=== PATIENT | female | born 1970 | race Caucasian/White ===

== ENCOUNTER 2019-04-30 22:14 | Observation (INO) | payer MEDICAID ==
[2019-04-30] MEDS ORDERED: Pantoprazole 40 MG Vial IVPUSH ONE (22:23)
[2019-04-30] MEDS ORDERED: Ondansetron 4 MG/2 ML SDV IVPUSH ONE (22:23)
--- NOTE | 2019-04-30 22:25 | EDM.PDOC ---
ED HPI GENERAL MEDICAL PROBLEM - General Chief Complaint: Abdominal Pain Time Seen by Provider: 04/30/19 22:21 Source of Information: Reports: Patient, Family History Limitations: Reports: No Limitations - History of Present Illness INITIAL COMMENTS - FREE TEXT/NARRATIVE: 49 y.o.w.f with a H/o NIDDM, H/O Thyroid nodules, came to the ed with her family 2 hours after she ate a hamburger and ice cream. Pt c/o right upper and right flank pain as well. denied dysuria. No trauma. No C/P. No SOB,no other acute med issues. No prev abd. surgeries. No other acute med issues. BP 139/94 Temp 37 RR 18 Pulse ox 100% on RA Onset Date: 04/30/19 Onset Time: 20:00 Duration: Hour(s): Location: Reports: Abdomen Quality: Reports: Ache, Burning Severity: Mild Improves with: Reports: None Worsens with: Reports: None Context: Reports: Other (ate a hamburger) - Related Data Allergies Allergy/AdvReac Type Severity Reaction Status Date / Time hydrocodone Allergy Itching Verified 04/30/19 22:31 Home Meds: Home Meds Levothyroxine [Synthroid] 50 mcg PO ACBREAKFAST 05/01/19 [History] sitaGLIPtin Phos/Metformin HCl [Janumet 50-1,000 MG] 1 each PO DAILY 05/01/19 [ History] ED ROS GENERAL - Review of Systems Review Of Systems: See Below Constitutional: Reports: No Symptoms HEENT: Reports: No Symptoms Respiratory: Reports: No Symptoms Cardiovascular: Reports: No Symptoms Endocrine: Reports: No Symptoms GI/Abdominal: Reports: Abdominal Pain (RUQ), Nausea, Vomiting : Reports: Dysuria Musculoskeletal: Reports: No Symptoms Skin: Reports: No Symptoms Neurological: Reports: No Symptoms Psychiatric: Reports: No Symptoms Hematologic/Lymphatic: Reports: No Symptoms Immunologic: Reports: No Symptoms ED EXAM, GI/ABD - Physical Exam Exam: See Below Exam Limited By: No Limitations General Appearance: Alert, WD/WN, Mild Distress Eyes: Bilateral: Normal Appearance Ears: Normal External Exam Nose: Normal Inspection, Normal Mucosa Throat/Mouth: Normal Inspection, Normal Lips, Normal Voice, No Airway Compromise Head: Atraumatic, Normocephalic Neck: Normal Inspection, Supple, Non-Tender, Full Range of Motion Respiratory/Chest: No Respiratory Distress, Lungs Clear, Normal Breath Sounds, No Accessory Muscle Use, Chest Non-Tender Cardiovascular: Normal Peripheral Pulses, Regular Rate, Rhythm, No Edema, No Gallop GI/Abdominal Exam: Normal Bowel Sounds, Soft, Non-Tender, No Organomegaly, No Abnormal Bruit, No Mass, Pelvis Stable (Female) Exam: Deferred Rectal (Female) Exam: Deferred Back Exam: Normal Inspection, Full Range of Motion Extremities: Normal Inspection, Normal Range of Motion Neurological: Alert, Oriented, CN II-XII Intact, Normal Cognition, Normal Gait Psychiatric: Normal Affect, Normal Mood Skin Exam: Warm, Dry, Intact, Normal Color, No Rash Lymphatic: No Adenopathy EKG INTERPRETATION EKG Date: 05/01/19 Time: 02:45 Rhythm: NSR Rate (Beats/Min): 72 Chana: Normal P-Wave: Present QRS: Normal ST-T: Normal QT: Normal Comparison: NA - No Prior EKG Course - Vital Signs Text/Narrative:: 49 y.o.w.f with a H/o NIDDM, H/O Thyroid nodules, came to the ed with her family 2 hours after she ate a hamburger and ice cream. Pt c/o right upper and right flank pain as well. denied dysuria. No trauma. No C/P. No SOB,no other acute med issues. No prev abd. surgeries. No other acute med issues. BP 139/94 Temp 37 RR 18 Pulse ox 100% on RA PE: Obese 49 y.o.w.f with N/V and right flank pain 2 hours after eating a hamburger and ICE cream Imaging: No U/S available Labs: WBC 13.4 MCV 77 GFR 59 HGB A1 C 6.6 LF's nl UA pos for UTI with hematuria Impression: Pyelonephritis/UTI with hematuria, Gastritis, poss Food poisoning, Dehydration Tx: NC, Zofran/Phenergan, Protonix, NS and Levaquin Reexam: Same improvement, still nauseated, still flank pain Plan: Admit to MS Last Recorded V/S: Last Vital Signs Temp 37.0 C 05/01/19 02:00 Pulse 64 05/01/19 02:00 Resp 18 05/01/19 02:00 BP 120/89 05/01/19 02:00 Pulse Ox 100 05/01/19 02:00 - Orders/Labs/Meds Orders: Active Orders 24 hr Category Date Time Status CULTURE URINE [RM] Stat Lab 04/30/19 22:40 Received Sodium Chloride 0.9% [Normal Saline] 1,000 ml Med 04/30/19 22:30 Active IV ASDIRECTED Medication Orders Sodium Chloride (Normal Saline) 1,000 mls @ 125 mls/hr IV ASDIRECTED KARRIE Last Admin: 04/30/19 23:18 Dose: 125 mls/hr Promethazine HCl 12.5 mg/ (Sodium Chloride) 50.5 mls @ 200 mls/hr IV Q6H PRN PRN Reason: Nausea/Vomiting Levofloxacin/Dextrose 500 mg/ (Premix) 100 mls @ 100 mls/hr IV Q24H [facility] Labs: Laboratory Tests 04/30/19 04/30/19 04/30/19 Range/Units 22:35 22:35 22:40 WBC 13.9 H (4.5-12.0) X10-3/uL RBC 4.88 (3.23-5.20) x10(6)uL Hgb 12.5 (11.5-15.5) g/dL Hct 37.7 (30.0-51.3) % MCV 77.2 L (80-96) fL MCH 25.5 L (27.7-33.6) pg MCHC 33.0 (32.2-35.4) g/dL RDW 15.8 H (11.5-15.5) % Plt Count 339 (125-369) X10(3)uL MPV 7.6 (7.4-10.4) fL Neut % (Auto) 73.0 (46-82) % Lymph % (Auto) 20.0 (13-37) % [place] % (Auto) 4.7 (4-12) % Eos % (Auto) 2 (1.0-5.0) % Baso % (Auto) 1 (0-2) % Neut # (Auto) 10.0 H (1.6-8.3) # Lymph # (Auto) 2.8 (0.6-5.0) # [place] # (Auto) 0.7 (0.0-1.3) # Eos # (Auto) 0.3 (0.0-0.8) # Baso # (Auto) 0.1 (0.0-0.2) # Sodium 139 (135-145) mmol/L Potassium 3.9 (3.5-5.3) mmol/L Chloride 102 (100-110) mmol/L Carbon Dioxide 28 (21-32) mmol/L BUN 11 (7-18) mg/dL Creatinine 1.0 (0.55-1.02) mg/dL Est Cr Clr Drug Dosing 61.23 mL/min Estimated GFR (MDRD) 59 L (>60) BUN/Creatinine Ratio 11.0 (9-20) Glucose 140 H (80-116) mg/dL Hemoglobin A1c (4.5-6.2) % Lactic Acid (0.4-2.2) mmol/L Calcium 9.4 (8.6-10.2) mg/dL Total Bilirubin 0.3 (0.1-1.3) mg/dL Direct Bilirubin 0.15 (0.10-0.20) mg/dL AST 19 (5-25) IU/L ALT 32 (12-36) U/L Alkaline Phosphatase 82 (56-112) IU/L Troponin I (<0.017-0.056) ng/mL Total Protein 7.7 (6.0-8.0) g/dL Albumin 3.5 (3.5-5.2) g/dL Amylase 30 (25-115) U/L Urine Color Yellow (YELLOW) Urine Appearance Cloudy (CLEAR) Urine pH 5.0 (5.0-6.5) Ur Specific [place] 1.030 H (1.010-1.025) Urine Protein Trace (NEGATIVE) mg/dL Urine Glucose (UA) Normal (NORMAL) mg/dL Urine Ketones Negative (NEGATIVE) mg/dL Urine Occult Blood Large H (NEGATIVE) Urine Nitrite Negative (NEGATIVE) Urine Bilirubin Negative (NEGATIVE) Urine Urobilinogen Normal (NEGATIVE) mg/dL Ur Leukocyte Esterase Large H (NEGATIVE) Urine RBC 30-40 H (0-5) Urine WBC 20-30 H (0-5) Ur Squamous Epith Cells Moderate H (NS,R,O) Urine Bacteria Moderate H (NS) 04/30/19 04/30/19 04/30/19 Range/Units 23:38 23:55 23:55 WBC (4.5-12.0) X10-3/uL RBC (3.23-5.20) x10(6)uL Hgb (11.5-15.5) g/dL Hct (30.0-51.3) % MCV (80-96) fL MCH (27.7-33.6) pg MCHC (32.2-35.4) g/dL RDW (11.5-15.5) % Plt Count (125-369) X10(3)uL MPV (7.4-10.4) fL Neut % (Auto) (46-82) % Lymph % (Auto) (13-37) % [place] % (Auto) (4-12) % Eos % (Auto) (1.0-5.0) % Baso % (Auto) (0-2) % Neut # (Auto) (1.6-8.3) # Lymph # (Auto) (0.6-5.0) # [place] # (Auto) (0.0-1.3) # Eos # (Auto) (0.0-0.8) # Baso # (Auto) (0.0-0.2) # Sodium (135-145) mmol/L Potassium (3.5-5.3) mmol/L Chloride (100-110) mmol/L Carbon Dioxide (21-32) mmol/L BUN (7-18) mg/dL Creatinine (0.55-1.02) mg/dL Est Cr Clr Drug Dosing mL/min Estimated GFR (MDRD) (>60) BUN/Creatinine Ratio (9-20) Glucose (80-116) mg/dL Hemoglobin A1c 6.5 H (4.5-6.2) % Lactic Acid 1.5 (0.4-2.2) mmol/L Calcium (8.6-10.2) mg/dL Total Bilirubin (0.1-1.3) mg/dL Direct Bilirubin (0.10-0.20) mg/dL AST (5-25) IU/L ALT (12-36) U/L Alkaline Phosphatase (56-112) IU/L Troponin I < 0.017 L (<0.017-0.056) ng/mL Total Protein (6.0-8.0) g/dL Albumin (3.5-5.2) g/dL Amylase (25-115) U/L Urine Color (YELLOW) Urine Appearance (CLEAR) Urine pH (5.0-6.5) Ur Specific [place] (1.010-1.025) Urine Protein (NEGATIVE) mg/dL Urine Glucose (UA) (NORMAL) mg/dL Urine Ketones (NEGATIVE) mg/dL Urine Occult Blood (NEGATIVE) Urine Nitrite (NEGATIVE) Urine Bilirubin (NEGATIVE) Urine Urobilinogen (NEGATIVE) mg/dL Ur Leukocyte Esterase (NEGATIVE) Urine RBC (0-5) Urine WBC (0-5) Ur Squamous Epith Cells (NS,R,O) Urine Bacteria (NS) Meds: Medications Generic Name Dose Route Start Last Admin Trade Name Freq PRN Reason Stop Dose Admin Sodium Chloride 1,000 mls @ 125 mls/hr 04/30/19 22:30 04/30/19 23:18 Normal Saline IV 125 mls/hr ASDIRECTED KARRIE Administration Promethazine HCl 12.5 mg/ 50.5 mls @ 200 mls/hr 05/01/19 02:26 Sodium Chloride IV Q6H PRN Nausea/Vomiting Levofloxacin/Dextrose 500 mg/ 100 mls @ 100 mls/hr 05/01/19 02:30 Premix IV Q24H KARRIE Discontinued Medications Generic Name Dose Route Start Last Admin Trade Name Freq PRN Reason Stop Dose Admin Promethazine HCl 12.5 mg/ 50.5 mls @ 200 mls/hr 04/30/19 23:40 05/01/19 00:11 Sodium Chloride IV 04/30/19 23:55 200 mls/hr ONETIME STA Administration Levofloxacin/Dextrose 500 mg/ 100 mls @ 100 mls/hr 04/30/19 23:44 05/01/19 00 :30 Premix IV 05/01/19 00:43 100 mls/hr ONETIME ONE Administration Levofloxacin/Dextrose Confirm 04/30/19 23:58 05/01/19 00:27 Levaquin In D5w 500 Mg/100 Ml Administered 04/30/19 23:59 Not Given Dose 100 mls @ as directed IV .STK-MED ONE Ketorolac Tromethamine 30 mg 04/30/19 23:47 05/01/19 00:02 Toradol IVPUSH 04/30/19 23:48 30 mg ONETIME ONE Administration Levofloxacin 500 mg 04/30/19 23:35 05/01/19 02:19 Levaquin PO 04/30/19 23:36 Not Given ONETIME ONE Ondansetron HCl 8 mg 04/30/19 22:23 05/01/19 02:18 Zofran IVPUSH 04/30/19 22:24 Not Given ONETIME ONE Ondansetron HCl 8 mg 04/30/19 22:58 04/30/19 23:03 Zofran Odt PO 04/30/19 22:59 8 mg ONETIME ONE Administration Pantoprazole Sodium 40 mg 04/30/19 22:23 04/30/19 23:24 Protonix Iv IVPUSH 04/30/19 22:24 40 mg ONETIME ONE Administration Departure - Departure Time of Disposition: 02:43 Disposition: Refer to Observation Condition: Fair Clinical Impression: Pyelonephritis - Discharge Information - My Orders Last 24 Hours: My Active Orders 04/30/19 22:30 Sodium Chloride 0.9% [Normal Saline] 1,000 ml IV ASDIRECTED 04/30/19 22:40 CULTURE URINE [RM] Stat - Assessment/Plan Last 24 Hours: My Active Orders 04/30/19 22:30 Sodium Chloride 0.9% [Normal Saline] 1,000 ml IV ASDIRECTED 04/30/19 22:40 CULTURE URINE [RM] Stat
[2019-04-30] MEDS ORDERED: Ondansetron 8 MG Tab.DIS PO ONE (22:58)
[2019-04-30] MEDS: Sodium Chloride 0.9% 1,000 ML IV SCH (23:18)
[2019-04-30] MEDS ORDERED: Promethazine 12.5 MG in Sodium Chloride 0.9% 50 ML IV STA (23:40)
[2019-04-30] MEDS ORDERED: Levofloxacin/Dextrose 5%-Water 500 MG in Premix Bag 1 BAG IV ONE (23:44)
[2019-04-30] MEDS ORDERED: Ketorolac 30 MG/ML SDV IVPUSH ONE (23:47)
[2019-04-30] MEDS ORDERED: Levofloxacin/Dextrose 5%-Water 100 ML IV ONE (23:58)
[2019-05-01 00:10] LABS: HEMOGLOBIN A1C 6.5 % (4.5-6.2)
[2019-05-01] MEDS: Levofloxacin 500 MG Tab PO ONE ×2 (02:16→02:19)
[2019-05-01] MEDS ORDERED: Promethazine 12.5 MG in Sodium Chloride 0.9% 50 ML IV PRN (02:26)
[2019-05-01] MEDS ORDERED: Levofloxacin/Dextrose 5%-Water 500 MG in Premix Bag 1 BAG IV SCH (02:30)
[2019-05-01] MEDS ORDERED: Ketorolac 30 MG/ML SDV IVPUSH PRN (06:00)
--- NOTE | 2019-05-01 08:47 | PCM.HP ---
H&P History of Present Illness - General Date of Service: 05/01/19 Admit Problem/Dx: Admission Diagnosis/Problem Admission Diagnosis/Problem Pyelonephritis Source of Information: Patient, EMS Notes Reviewed History Limitations: Reports: No Limitations - History of Present Illness Initial Comments - Free Text/Narative: This is a 49-year-old female patient states she was in [place] yesterday and then came back and started feeling sweaty and started get nauseated and vomiting. She had low back pain and then it went up a little higher on the right side it radiated around to her lower right stomach. She denies dysuria, pyuria, hematuria. She denies any history of UTI, pyelonephritis or kidney stones. She did feel chilled. She denies cough, nasal congestion, ear pain. She has chronic diarrhea and that has not changed. Right Lower Flank Pain Score (Numeric/FACES): 2 - Related Data Allergies/Adverse Reactions: Allergies Allergy/AdvReac Type Severity Reaction Status Date / Time hydrocodone Allergy Itching Verified 04/30/19 22:31 Home Medications: Home Meds Levothyroxine [Synthroid] 50 mcg PO ACBREAKFAST 05/01/19 [History] sitaGLIPtin Phos/Metformin HCl [Janumet 50-1,000 MG] 1 each PO DAILY 05/01/19 [ History] Past Medical History HEENT History: Reports: Impaired Vision, Other (See Below) Other HEENT History: glasses Genitourinary History: Reports: Other (See Below) Other Genitourinary History: in with R flank pain, started today, urine culture pending Musculoskeletal History: Reports: Other (See Below) Other Musculoskeletal History: hx sprained R knee, has a knee brace Endocrine/Metabolic History: Reports: Diabetes, Type II, Other (See Below) Other Endocrine/Metabolic History: 1 year hx type 2 diabetes Dermatologic History: Reports: Other (See Below) Other Dermatologic History: Rosacea, skin allergies ? psoriasis, Red rash on her R leg - Infectious Disease History Infectious Disease History: Reports: Chicken Pox - Past Surgical History HEENT Surgical History: Reports: Tonsillectomy Female Surgical History: Reports: None Endocrine Surgical History: Reports: Thyroidectomy, Other (See Below) Other Endocrine Surgeries/Procedures: Partial thyroidectomy, has nodules on other area Musculoskeletal Surgical History: Reports: None Social & Family History - Family History Oncologic: Reports: Breast, Other (See Below) Other Oncologic Family History: mother of breast ca, father from testicular cancer - Tobacco Use Smoking Status *Q: Never Smoker Second Hand Smoke Exposure: No - Caffeine Use Caffeine Use: Reports: Soda - Recreational Drug Use Recreational Drug Use: No H&P Review of Systems - Review of Systems: Review Of Systems: See Below General: Reports: Fever, Malaise, Weakness, Fatigue, Diaphoresis, Decreased Appetite HEENT: Reports: No Symptoms Pulmonary: Reports: No Symptoms Cardiovascular: Reports: No Symptoms Gastrointestinal: Reports: Abdominal Pain, Diarrhea Genitourinary: Reports: Flank Pain. Denies: Dysuria, Frequency, Burning, Pain, Urgency, Hematuria Musculoskeletal: Reports: No Symptoms Skin: Reports: Other (Rash on her leg for over a year. She sees her primary was given her trazodone which helps itching but doesn't go away. No exposures) Psychiatric: Reports: No Symptoms Neurological: Reports: No Symptoms Hematologic/Lymphatic: Reports: No Symptoms Immunologic: Reports: No Symptoms Exam - Exam Exam: See Below - Vital Signs Vital Signs: Last Vital Signs Temp 98.3 F 05/01/19 07:13 Pulse 64 05/01/19 07:13 Resp 16 05/01/19 07:13 BP 128/70 05/01/19 07:13 Pulse Ox 94 L 05/01/19 07:13 Weight: 231 lb 2 oz - Exam General: Alert, Oriented, Cooperative HEENT: Hearing Intact, Normal Nasal Septum, Posterior Pharynx Clear, TMs Clear Neck: Supple, Trachea Midline, Lymphadenopathy Lungs: Normal Respiratory Effort Cardiovascular: Regular Rate, Regular Rhythm. No: Systolic Murmur, Diastolic Murmur GI/Abdominal Exam: Normal Bowel Sounds, Soft, Non-Tender, No Organomegaly, No Distention Back Exam: Normal Inspection, CVA Tenderness (R) Extremities: Normal Inspection, Non-Tender, No Pedal Edema Skin: Warm Neurological: Normal Speech, Normal Tone Neuro Extensive - Mental Status: Alert, Oriented x3, Normal Mood/Affect, Normal Cognition Psychiatric: Alert - Patient Data Lab Results Last 24 hrs: Laboratory Results - last 24 hr 04/30/19 04/30/19 04/30/19 Range/Units 22:35 22:35 22:40 WBC 13.9 H (4.5-12.0) X10-3/uL RBC 4.88 (3.23-5.20) x10(6)uL Hgb 12.5 (11.5-15.5) g/dL Hct 37.7 (30.0-51.3) % MCV 77.2 L (80-96) fL MCH 25.5 L (27.7-33.6) pg MCHC 33.0 (32.2-35.4) g/dL RDW 15.8 H (11.5-15.5) % Plt Count 339 (125-369) X10(3)uL MPV 7.6 (7.4-10.4) fL Neut % (Auto) 73.0 (46-82) % Lymph % (Auto) 20.0 (13-37) % [place] % (Auto) 4.7 (4-12) % Eos % (Auto) 2 (1.0-5.0) % Baso % (Auto) 1 (0-2) % Neut # (Auto) 10.0 H (1.6-8.3) # Lymph # (Auto) 2.8 (0.6-5.0) # [place] # (Auto) 0.7 (0.0-1.3) # Eos # (Auto) 0.3 (0.0-0.8) # Baso # (Auto) 0.1 (0.0-0.2) # Sodium 139 (135-145) mmol/L Potassium 3.9 (3.5-5.3) mmol/L Chloride 102 (100-110) mmol/L Carbon Dioxide 28 (21-32) mmol/L BUN 11 (7-18) mg/dL Creatinine 1.0 (0.55-1.02) mg/dL Est Cr Clr Drug Dosing 61.23 mL/min Estimated GFR (MDRD) 59 L (>60) BUN/Creatinine Ratio 11.0 (9-20) Glucose 140 H (80-116) mg/dL Hemoglobin A1c (4.5-6.2) % Lactic Acid (0.4-2.2) mmol/L Calcium 9.4 (8.6-10.2) mg/dL Total Bilirubin 0.3 (0.1-1.3) mg/dL Direct Bilirubin 0.15 (0.10-0.20) mg/dL AST 19 (5-25) IU/L ALT 32 (12-36) U/L Alkaline Phosphatase 82 (56-112) IU/L Troponin I (<0.017-0.056) ng/mL Total Protein 7.7 (6.0-8.0) g/dL Albumin 3.5 (3.5-5.2) g/dL Amylase 30 (25-115) U/L Urine Color Yellow (YELLOW) Urine Appearance Cloudy (CLEAR) Urine pH 5.0 (5.0-6.5) Ur Specific [place] 1.030 H (1.010-1.025) Urine Protein Trace (NEGATIVE) mg/dL Urine Glucose (UA) Normal (NORMAL) mg/dL Urine Ketones Negative (NEGATIVE) mg/dL Urine Occult Blood Large H (NEGATIVE) Urine Nitrite Negative (NEGATIVE) Urine Bilirubin Negative (NEGATIVE) Urine Urobilinogen Normal (NEGATIVE) mg/dL Ur Leukocyte Esterase Large H (NEGATIVE) Urine RBC 30-40 H (0-5) Urine WBC 20-30 H (0-5) Ur Squamous Epith Cells Moderate H (NS,R,O) Urine Bacteria Moderate H (NS) 04/30/19 04/30/19 04/30/19 Range/Units 23:38 23:55 23:55 WBC (4.5-12.0) X10-3/uL RBC (3.23-5.20) x10(6)uL Hgb (11.5-15.5) g/dL Hct (30.0-51.3) % MCV (80-96) fL MCH (27.7-33.6) pg MCHC (32.2-35.4) g/dL RDW (11.5-15.5) % Plt Count (125-369) X10(3)uL MPV (7.4-10.4) fL Neut % (Auto) (46-82) % Lymph % (Auto) (13-37) % [place] % (Auto) (4-12) % Eos % (Auto) (1.0-5.0) % Baso % (Auto) (0-2) % Neut # (Auto) (1.6-8.3) # Lymph # (Auto) (0.6-5.0) # [place] # (Auto) (0.0-1.3) # Eos # (Auto) (0.0-0.8) # Baso # (Auto) (0.0-0.2) # Sodium (135-145) mmol/L Potassium (3.5-5.3) mmol/L Chloride (100-110) mmol/L Carbon Dioxide (21-32) mmol/L BUN (7-18) mg/dL Creatinine (0.55-1.02) mg/dL Est Cr Clr Drug Dosing mL/min Estimated GFR (MDRD) (>60) BUN/Creatinine Ratio (9-20) Glucose (80-116) mg/dL Hemoglobin A1c 6.5 H (4.5-6.2) % Lactic Acid 1.5 (0.4-2.2) mmol/L Calcium (8.6-10.2) mg/dL Total Bilirubin (0.1-1.3) mg/dL Direct Bilirubin (0.10-0.20) mg/dL AST (5-25) IU/L ALT (12-36) U/L Alkaline Phosphatase (56-112) IU/L Troponin I < 0.017 L (<0.017-0.056) ng/mL Total Protein (6.0-8.0) g/dL Albumin (3.5-5.2) g/dL Amylase (25-115) U/L Urine Color (YELLOW) Urine Appearance (CLEAR) Urine pH (5.0-6.5) Ur Specific [place] (1.010-1.025) Urine Protein (NEGATIVE) mg/dL Urine Glucose (UA) (NORMAL) mg/dL Urine Ketones (NEGATIVE) mg/dL Urine Occult Blood (NEGATIVE) Urine Nitrite (NEGATIVE) Urine Bilirubin (NEGATIVE) Urine Urobilinogen (NEGATIVE) mg/dL Ur Leukocyte Esterase (NEGATIVE) Urine RBC (0-5) Urine WBC (0-5) Ur Squamous Epith Cells (NS,R,O) Urine Bacteria (NS) Result Diagrams: 04/30/19 22:35 04/30/19 22:35 - Problem List (1) Pyelonephritis SNOMED Code(s): 03556821 ICD Code: N12 - TUBULO-INTERSTITIAL NEPHRITIS, NOT SPCF ACUTE OR CHRONIC Status: Acute Current Visit: Yes Problem List Initiated/Reviewed/Updated: Yes Orders Last 24hrs: Active Orders 24 hr Category Date Time Status Patient Status [ADT] Routine ADT 05/01/19 02:18 Active Blood Glucose Check, Bedside [RC] BIDMEALS Care 05/01/19 02:18 Active Oxygen Therapy [RC] PRN Care 05/01/19 02:18 Active Up With Assistance [RC] ASDIRECTED Care 05/01/19 02:18 Active Up ad Yasmeen [RC] ASDIRECTED Care 05/01/19 08:41 Ordered VTE/DVT Education [RC] Per Unit Routine Care 05/01/19 02:18 Active Vital Signs [RC] 00,04,08,12,16,20 Care 05/01/19 02:18 Active Clear Liquid Diet [DIET] Diet 05/01/19 Lunch Ordered CBC WITH AUTO DIFF [HEME] Routine Lab 05/02/19 06:00 Ordered CULTURE URINE [RM] Stat Lab 04/30/19 22:40 Received Enoxaparin [Lovenox] Med 05/01/19 09:00 Ordered 40 mg SUBCUT DAILY Ketorolac [Toradol] Med 05/01/19 06:00 Active 30 mg IVPUSH Q6H PRN Levofloxacin/Dextrose 5%-Water [Levaquin in D5W 500 MG/ Med 05/02/19 00:00 Active 100 ML] 500 mg Premix Bag 1 bag IV Q24H Levothyroxine [Synthroid] Med 05/02/19 07:30 Ordered 50 mcg PO ACBREAKFAST Promethazine [Phenergan] 12.5 mg Med 05/01/19 02:26 Active Sodium Chloride 0.9% [Normal Saline] 50 ml IV Q6H Sodium Chloride 0.9% [Normal Saline] 1,000 ml Med 04/30/19 22:30 Active IV ASDIRECTED Resuscitation Status Routine Resus Stat 05/01/19 02:18 Ordered EKG 12 Lead [EK] Routine Ther 05/01/19 02:28 Ordered Medication Orders Enoxaparin Sodium (Lovenox) 40 mg SUBCUT DAILY KARRIE Sodium Chloride (Normal Saline) 1,000 mls @ 125 mls/hr IV ASDIRECTED KARRIE Last Admin: 04/30/19 23:18 Dose: 125 mls/hr Promethazine HCl 12.5 mg/ (Sodium Chloride) 50.5 mls @ 200 mls/hr IV Q6H PRN PRN Reason: Nausea/Vomiting Last Admin: 05/01/19 04:23 Dose: 200 mls/hr Levofloxacin/Dextrose 500 mg/ (Premix) 100 mls @ 100 mls/hr IV Q24H [facility] Ketorolac Tromethamine (Toradol) 30 mg IVPUSH Q6H PRN PRN Reason: Pain (moderate 4-6) Stop: 05/06/19 06:01 Last Admin: 05/01/19 04:36 Dose: 30 mg Levothyroxine Sodium (Synthroid) 50 mcg PO ACBREAKFAST [facility] Assessment/Plan Comment:: 1. Admit observation. 2. For VTE prophylaxis Lovenox 40 mg subcutaneous daily 3. Hold her diabetes medicine and continue her thyroid medicine. 4. Clear liquid diet 5. IV with normal saline at 125 mL an hour 6. Levaquin 500 mg IV daily 7. Patient states she does not swallow pills will give her Toradol 30 mg IV every 6 hours when necessary for pain 8. Accu-Cheks twice a day 9. Up ad yasmeen. 10. Recheck CBC in a.m.
[2019-05-01] MEDS: Sodium Chloride 0.9% 1,000 ML IV SCH ×2 (09:07→17:21)
[2019-05-01] MEDS: Enoxaparin 40 MG/0.4 ML Syringe SUBCUT SCH (09:15)
[2019-05-01] MEDS ORDERED: LEVOTHYROXINE 50 MCG PO ONE (11:00)
[2019-05-01] MEDS: Betamethasone Dipropionate/Clotrimazole 0.05-1% Crm 15 GM Tube TOP SCH ×2 (14:35→21:05)
[2019-05-02] MEDS ORDERED: Levofloxacin/Dextrose 5%-Water 500 MG in Premix Bag 1 BAG IV SCH ×2
[2019-05-02] MEDS ORDERED: LEVOTHYROXINE 50 MCG PO SCH (07:30)
--- NOTE | 2019-05-02 08:25 | PCM.PN ---
- General Info Date of Service: 05/02/19 Admission Dx/Problem (Free Text): Patient she is doing great. She has no fevers, chills, back pain, diaphoresis or abdominal pain she's had a little bit hematuria. No dysuria, pyuria. - Patient Data Vitals - Most Recent: Last Vital Signs Temp 98.6 F 05/02/19 00:32 Pulse 62 05/02/19 00:32 Resp 16 05/02/19 00:32 BP 108/63 05/02/19 00:32 Pulse Ox 97 05/02/19 02:23 Weight - Most Recent: 231 lb 2 oz I&O - Last 24 Hours: Intake & Output 05/01/19 05/02/19 05/02/19 22:59 06:59 14:59 Intake Total 351 964 Output Total 300 Balance 351 964 -300 Lab Results Last 24 Hours: Laboratory Results - last 24 hr 05/01/19 05/01/19 05/02/19 Range/Units 17:33 18:39 05:45 WBC 10.7 (4.5-12.0) X10-3/uL RBC 4.33 (3.23-5.20) x10(6)uL Hgb 11.4 L (11.5-15.5) g/dL Hct 33.5 (30.0-51.3) % MCV 77.4 L (80-96) fL MCH 26.2 L (27.7-33.6) pg MCHC 33.9 (32.2-35.4) g/dL RDW 16.3 H (11.5-15.5) % Plt Count 279 (125-369) X10(3)uL MPV 7.8 (7.4-10.4) fL Neut % (Auto) 62.8 (46-82) % Lymph % (Auto) 29.8 (13-37) % [place] % (Auto) 5.2 (4-12) % Eos % (Auto) 2 (1.0-5.0) % Baso % (Auto) 1 (0-2) % Neut # (Auto) 6.6 (1.6-8.3) # Lymph # (Auto) 3.2 (0.6-5.0) # [place] # (Auto) 0.6 (0.0-1.3) # Eos # (Auto) 0.2 (0.0-0.8) # Baso # (Auto) 0.1 (0.0-0.2) # POC Glucose 79 L 144 H (80-116) mg/dL 05/02/19 Range/Units 06:39 WBC (4.5-12.0) X10-3/uL RBC (3.23-5.20) x10(6)uL Hgb (11.5-15.5) g/dL Hct (30.0-51.3) % MCV (80-96) fL MCH (27.7-33.6) pg MCHC (32.2-35.4) g/dL RDW (11.5-15.5) % Plt Count (125-369) X10(3)uL MPV (7.4-10.4) fL Neut % (Auto) (46-82) % Lymph % (Auto) (13-37) % [place] % (Auto) (4-12) % Eos % (Auto) (1.0-5.0) % Baso % (Auto) (0-2) % Neut # (Auto) (1.6-8.3) # Lymph # (Auto) (0.6-5.0) # [place] # (Auto) (0.0-1.3) # Eos # (Auto) (0.0-0.8) # Baso # (Auto) (0.0-0.2) # POC Glucose 105 (80-116) mg/dL Jeff Results Last 24 Hours: Microbiology 04/30/19 22:40 Urine Culture - Preliminary Urine, Bladder MIXED POSITIVE KAMALJIT DAY 1 Med Orders - Current: Current Medications Betamethasone/Clotrimazole (Lotrisone) 0 gm TOP BID [facility] Last Admin: 05/01/19 21:05 Dose: 1 applic Enoxaparin Sodium (Lovenox) 40 mg SUBCUT DAILY [facility] Last Admin: 05/01/19 09:15 Dose: 40 mg Sodium Chloride (Normal Saline) 1,000 mls @ 70 mls/hr IV ASDIRECTED [facility] Last Admin: 05/01/19 17:21 Dose: 125 mls/hr Promethazine HCl 12.5 mg/ (Sodium Chloride) 50.5 mls @ 200 mls/hr IV Q6H PRN PRN Reason: Nausea/Vomiting Last Admin: 05/01/19 04:23 Dose: 200 mls/hr Levofloxacin/Dextrose 500 mg/ (Premix) 100 mls @ 100 mls/hr IV Q24H [facility] Last Admin: 05/02/19 00:15 Dose: 100 mls/hr Ketorolac Tromethamine (Toradol) 30 mg IVPUSH Q6H PRN PRN Reason: Pain (moderate 4-6) Stop: 05/06/19 06:01 Last Admin: 05/01/19 04:36 Dose: 30 mg Levothyroxine Sodium (Synthroid) 50 mcg PO ACBREAKFAST [facility] Last Admin: 05/02/19 07:23 Dose: 50 mcg Discontinued Medications Promethazine HCl 12.5 mg/ (Sodium Chloride) 50.5 mls @ 200 mls/hr IV ONETIME STA Stop: 04/30/19 23:55 Last Admin: 05/01/19 00:11 Dose: 200 mls/hr Levofloxacin/Dextrose 500 mg/ (Premix) 100 mls @ 100 mls/hr IV ONETIME ONE Stop: 05/01/19 00:43 Last Admin: 05/01/19 00:30 Dose: 100 mls/hr Levofloxacin/Dextrose (Levaquin In D5w 500 Mg/100 Ml) Confirm Administered Dose 100 mls @ as directed IV .STK-MED ONE Stop: 04/30/19 23:59 Last Admin: 05/01/19 00:27 Dose: Not Given Levofloxacin/Dextrose 500 mg/ (Premix) 100 mls @ 100 mls/hr IV Q24H [facility] Last Admin: 05/01/19 04:15 Dose: Not Given Ketorolac Tromethamine (Toradol) 30 mg IVPUSH ONETIME ONE Stop: 04/30/19 23:48 Last Admin: 05/01/19 00:02 Dose: 30 mg Levofloxacin (Levaquin) 500 mg PO ONETIME ONE Stop: 04/30/19 23:36 Last Admin: 05/01/19 02:19 Dose: Not Given Levothyroxine Sodium (Synthroid) 50 mcg PO 0600 ONE Stop: 05/02/19 11:01 Levothyroxine Sodium (Synthroid) 50 mcg PO ONETIME ONE Stop: 05/01/19 11:01 Last Admin: 05/01/19 11:03 Dose: 50 mcg Ondansetron HCl (Zofran) 8 mg IVPUSH ONETIME ONE Stop: 04/30/19 22:24 Last Admin: 05/01/19 02:18 Dose: Not Given Ondansetron HCl (Zofran Odt) 8 mg PO ONETIME ONE Stop: 04/30/19 22:59 Last Admin: 04/30/19 23:03 Dose: 8 mg Pantoprazole Sodium (Protonix Iv) 40 mg IVPUSH ONETIME ONE Stop: 04/30/19 22:24 Last Admin: 04/30/19 23:24 Dose: 40 mg - Exam General: Alert, Oriented Lungs: Normal Respiratory Effort GI/Abdominal Exam: Other (No suprapubic tenderness) Back Exam: No: CVA Tenderness (R), CVA Tenderness (L) - Problem List & Annotations (1) Pyelonephritis SNOMED Code(s): 36609379 Code(s): N12 - TUBULO-INTERSTITIAL NEPHRITIS, NOT SPCF ACUTE OR CHRONIC Status: Acute Current Visit: Yes (2) Rash SNOMED Code(s): 973078395 Code(s): R21 - RASH AND OTHER NONSPECIFIC SKIN ERUPTION Status: Acute Current Visit: Yes - Problem List Review Problem List Initiated/Reviewed/Updated: Yes - My Orders Last 24 Hours: My Active Orders 05/01/19 08:41 Up ad Yasmeen [RC] ASDIRECTED 05/01/19 09:00 Enoxaparin [Lovenox] 40 mg SUBCUT DAILY 05/01/19 12:30 Betamethasone/Clotrimazole [Lotrisone] 0 gm TOP BID 05/02/19 07:30 Levothyroxine [Synthroid] 50 mcg PO ACBREAKFAST 05/02/19 Breakfast Regular Diet [DIET] - Plan Plan:: 1. The patient has been afebrile for 24 hours and her white count is now down. She's eating and drinking. I will discharge her to home on Levaquin by mouth. 2. Lotrisone twice a day for the rash for no more than 7 days because of side effects. This was stressed this patient. I did discuss the side effects of long- term steroid use on the skin.
--- NOTE | 2019-05-02 08:30 | PCM.DCSUM1 ---
Discharge Summary - Hospital Course Free Text/Narrative:: Hospital course-[facility] Levaquin IV, IV fluids. Patient no appetite and was febrile. Started clear liquids and by the end of the day her temperature is gone and she was able to eat and drink. She did have some hematuria but no dysuria. She had back pain and her abdominal pain and that stopped also. She is afebrile for 24 hours her culture came back as mixed kamaljit. Her diet was advanced and she felt perfectly normal so we'll send her home and follow-up with the culture. She says she cannot swallow a pill. We talked to the pharmacist and they stated we can crush the Levaquin. We'll give her 1 dose of IV before she leaves and then she wants to hang carry her prescriptions. She had a rash is been there for over a year. Start some Lotrisone I told her to take it for 7-10 days twice a day. Stop better suggest she see a supervisor customer complaint service. She will follow up with Public health in [place]. Brief History: This is a 49-year-old female patient states she was in [place] yesterday and then came back and started feeling sweaty and started get nauseated and vomiting. She had low back pain and then it went up a little higher on the right side it radiated around to her lower right stomach. She denies dysuria, pyuria, hematuria. She denies any history of UTI, pyelonephritis or kidney stones. She did feel chilled. She denies cough, nasal congestion, ear pain. She has chronic diarrhea and that has not changed. Diagnosis: Stroke: No - Discharge Data Discharge Date: 05/02/19 Discharge Disposition: Home, Self-Care 01 Condition: Good - Discharge Diagnosis/Problem(s) (1) Pyelonephritis SNOMED Code(s): 95030167 ICD Code: N12 - TUBULO-INTERSTITIAL NEPHRITIS, NOT SPCF ACUTE OR CHRONIC Status: Acute Current Visit: Yes (2) Rash SNOMED Code(s): 301677772 ICD Code: R21 - RASH AND OTHER NONSPECIFIC SKIN ERUPTION Status: Acute Current Visit: Yes - Patient Instructions Diet: Diabetic Diet Activity: As Tolerated Driving: May Drive Today Showering/Bathing: May Shower Notify Provider of: Fever, Increased Pain Other/Special Instructions: 1. Recheck with her provider at [facility] in 7-10 days - Discharge Plan Prescriptions/Med Rec: Betamethasone/Clotrimazole [Lotrisone] 1 gm TOP BID #15 tube Levofloxacin [Levaquin] 500 mg PO DAILY #10 tablet Home Medications: Home Meds Levothyroxine [Synthroid] 50 mcg PO ACBREAKFAST 05/01/19 [History] sitaGLIPtin Phos/Metformin HCl [Janumet 50-1,000 MG] 1 each PO DAILY 05/01/19 [ History] Betamethasone/Clotrimazole [Lotrisone] 1 gm TOP BID #15 tube 05/02/19 [Rx] Levofloxacin [Levaquin] 500 mg PO DAILY #10 tablet 05/02/19 [Rx] Forms: ED Department Discharge Referrals: PCP,None [Primary Care Provider] - - Discharge Summary/Plan Comment DC Time >30 min.: No - Patient Data Vitals - Most Recent: Last Vital Signs Temp 98.6 F 05/02/19 00:32 Pulse 62 05/02/19 00:32 Resp 16 05/02/19 00:32 BP 108/63 05/02/19 00:32 Pulse Ox 97 05/02/19 02:23 Weight - Most Recent: 231 lb 2 oz I&O - Last 24 hours: Intake & Output 05/01/19 05/02/19 05/02/19 22:59 06:59 14:59 Intake Total 351 964 Output Total 300 Balance 351 964 -300 Lab Results - Last 24 hrs: Laboratory Results - last 24 hr 05/01/19 05/01/19 05/02/19 Range/Units 17:33 18:39 05:45 WBC 10.7 (4.5-12.0) X10-3/uL RBC 4.33 (3.23-5.20) x10(6)uL Hgb 11.4 L (11.5-15.5) g/dL Hct 33.5 (30.0-51.3) % MCV 77.4 L (80-96) fL MCH 26.2 L (27.7-33.6) pg MCHC 33.9 (32.2-35.4) g/dL RDW 16.3 H (11.5-15.5) % Plt Count 279 (125-369) X10(3)uL MPV 7.8 (7.4-10.4) fL Neut % (Auto) 62.8 (46-82) % Lymph % (Auto) 29.8 (13-37) % [place] % (Auto) 5.2 (4-12) % Eos % (Auto) 2 (1.0-5.0) % Baso % (Auto) 1 (0-2) % Neut # (Auto) 6.6 (1.6-8.3) # Lymph # (Auto) 3.2 (0.6-5.0) # [place] # (Auto) 0.6 (0.0-1.3) # Eos # (Auto) 0.2 (0.0-0.8) # Baso # (Auto) 0.1 (0.0-0.2) # POC Glucose 79 L 144 H (80-116) mg/dL 05/02/19 Range/Units 06:39 WBC (4.5-12.0) X10-3/uL RBC (3.23-5.20) x10(6)uL Hgb (11.5-15.5) g/dL Hct (30.0-51.3) % MCV (80-96) fL MCH (27.7-33.6) pg MCHC (32.2-35.4) g/dL RDW (11.5-15.5) % Plt Count (125-369) X10(3)uL MPV (7.4-10.4) fL Neut % (Auto) (46-82) % Lymph % (Auto) (13-37) % [place] % (Auto) (4-12) % Eos % (Auto) (1.0-5.0) % Baso % (Auto) (0-2) % Neut # (Auto) (1.6-8.3) # Lymph # (Auto) (0.6-5.0) # [place] # (Auto) (0.0-1.3) # Eos # (Auto) (0.0-0.8) # Baso # (Auto) (0.0-0.2) # POC Glucose 105 (80-116) mg/dL [place] Results - Last 24 hrs: Microbiology 04/30/19 22:40 Urine Culture - Preliminary Urine, Bladder MIXED POSITIVE KAMALJIT DAY 1 Med Orders - Current: Current Medications Betamethasone/Clotrimazole (Lotrisone) 0 gm TOP BID [facility] Last Admin: 05/01/19 21:05 Dose: 1 applic Enoxaparin Sodium (Lovenox) 40 mg SUBCUT DAILY [facility] Last Admin: 05/01/19 09:15 Dose: 40 mg Sodium Chloride (Normal Saline) 1,000 mls @ 70 mls/hr IV ASDIRECTED [facility] Last Admin: 05/01/19 17:21 Dose: 125 mls/hr Promethazine HCl 12.5 mg/ (Sodium Chloride) 50.5 mls @ 200 mls/hr IV Q6H PRN PRN Reason: Nausea/Vomiting Last Admin: 05/01/19 04:23 Dose: 200 mls/hr Levofloxacin/Dextrose 500 mg/ (Premix) 100 mls @ 100 mls/hr IV Q24H [facility] Last Admin: 05/02/19 00:15 Dose: 100 mls/hr Ketorolac Tromethamine (Toradol) 30 mg IVPUSH Q6H PRN PRN Reason: Pain (moderate 4-6) Stop: 05/06/19 06:01 Last Admin: 05/01/19 04:36 Dose: 30 mg Levothyroxine Sodium (Synthroid) 50 mcg PO ACBREAKFAST [facility] Last Admin: 05/02/19 07:23 Dose: 50 mcg Discontinued Medications Promethazine HCl 12.5 mg/ (Sodium Chloride) 50.5 mls @ 200 mls/hr IV ONETIME STA Stop: 04/30/19 23:55 Last Admin: 05/01/19 00:11 Dose: 200 mls/hr Levofloxacin/Dextrose 500 mg/ (Premix) 100 mls @ 100 mls/hr IV ONETIME ONE Stop: 05/01/19 00:43 Last Admin: 05/01/19 00:30 Dose: 100 mls/hr Levofloxacin/Dextrose (Levaquin In D5w 500 Mg/100 Ml) Confirm Administered Dose 100 mls @ as directed IV .STK-MED ONE Stop: 04/30/19 23:59 Last Admin: 05/01/19 00:27 Dose: Not Given Levofloxacin/Dextrose 500 mg/ (Premix) 100 mls @ 100 mls/hr IV Q24H [facility] Last Admin: 05/01/19 04:15 Dose: Not Given Ketorolac Tromethamine (Toradol) 30 mg IVPUSH ONETIME ONE Stop: 04/30/19 23:48 Last Admin: 05/01/19 00:02 Dose: 30 mg Levofloxacin (Levaquin) 500 mg PO ONETIME ONE Stop: 04/30/19 23:36 Last Admin: 05/01/19 02:19 Dose: Not Given Levothyroxine Sodium (Synthroid) 50 mcg PO 0600 ONE Stop: 05/02/19 11:01 Levothyroxine Sodium (Synthroid) 50 mcg PO ONETIME ONE Stop: 05/01/19 11:01 Last Admin: 05/01/19 11:03 Dose: 50 mcg Ondansetron HCl (Zofran) 8 mg IVPUSH ONETIME ONE Stop: 04/30/19 22:24 Last Admin: 05/01/19 02:18 Dose: Not Given Ondansetron HCl (Zofran Odt) 8 mg PO ONETIME ONE Stop: 04/30/19 22:59 Last Admin: 04/30/19 23:03 Dose: 8 mg Pantoprazole Sodium (Protonix Iv) 40 mg IVPUSH ONETIME ONE Stop: 04/30/19 22:24 Last Admin: 04/30/19 23:24 Dose: 40 mg
[2019-05-02] MEDS: Betamethasone Dipropionate/Clotrimazole 0.05-1% Crm 15 GM Tube TOP SCH (08:50)
[2019-05-02] MEDS: Enoxaparin 40 MG/0.4 ML Syringe SUBCUT SCH (08:59)
[2019-05-02] MEDS ORDERED: Levofloxacin/Dextrose 5%-Water 500 MG in Premix Bag 1 BAG IV ONE (08:59)
[2019-05-02] MEDS ORDERED: Levothyroxine 50 MCG Tab PO ONE (11:00)
== END 2019-05-02 11:05 | disposition home or self-care (01) ==
LOC: FB.ED 22:14 → FB.MS 05-01 02:18
PROVIDERS: ADMIT Family Medicine; ATTEND Family Medicine
DX: N12 Tubulo-interstitial nephritis, not specified as acute or chronic (principal); R21 Rash and other nonspecific skin eruption; E11.9 Type 2 diabetes mellitus without complications; Z79.899 Other long term (current) drug therapy; Z79.84 Long term (current) use of oral hypoglycemic drugs; Z88.5 Allergy status to narcotic agent
CPT/HCPCS: 36415; 80048; 80076; 81001; 82150; 82962; 83036; 83605; 84484; 85025; 87086; 93005; 96361; 96365; 96366; 96367; 96372; 96375; 96376; 99285; A9270; C9113; G0378; J1650; J1885; J1956; J2550; J7030; J7050; 93010; 99284

== ENCOUNTER 2019-05-03 08:15 | Emergency (ER) | payer MEDICAID ==
[2019-05-03] MEDS ORDERED: Ondansetron 4 MG/2 ML SDV IVPUSH ONE ×2 (08:52→12:09)
[2019-05-03] MEDS ORDERED: Sodium Chloride 0.9% 1,000 ML IV SCH (09:00)
--- NOTE | 2019-05-03 09:07 | EDM.PDOC ---
ED HPI GENERAL MEDICAL PROBLEM - General Chief Complaint: Genitourinary Problem Stated Complaint: RT SIDE PAIN AGAIN Time Seen by Provider: 05/03/19 08:40 Source of Information: Reports: Patient History Limitations: Reports: No Limitations - History of Present Illness INITIAL COMMENTS - FREE TEXT/NARRATIVE: seen and admitted Friday night for pyelonephritis, febrile at the time, elevated WBCs. Was feeling better yesterday morning and discharged. After arriving at home she started having increased back pain and nausea, vomited this morning. Has not been able to take any of her medications, although kept some Tylenol down last night. No appetite. This morning also noting worsening pain in her back and seems to come around a little on the right side. No fever since discharge, but a few sweats. Notes increased urinary frequency, and after she goes feels like she still has to go. Slight blood. Normal bowel movement yesterday, no vaginal bleeding. right flank Pain Score (Numeric/FACES): 4 - Related Data Allergies Allergy/AdvReac Type Severity Reaction Status Date / Time hydrocodone Allergy Itching Verified 05/03/19 08:25 Home Meds: Home Meds Levothyroxine [Synthroid] 50 mcg PO ACBREAKFAST 05/01/19 [History] sitaGLIPtin Phos/Metformin HCl [Janumet 50-1,000 MG] 1 each PO DAILY 05/01/19 [ History] Betamethasone/Clotrimazole [Lotrisone] 1 gm TOP BID #15 tube 05/02/19 [Rx] Levofloxacin [Levaquin] 500 mg PO DAILY #10 tablet 05/02/19 [Rx] Past Medical History HEENT History: Reports: Impaired Vision, Other (See Below) Other HEENT History: glasses Genitourinary History: Reports: Other (See Below) Other Genitourinary History: Pt was dx with pyelonephritis. Pt discharged from the hospital yesterday 05/02/19 and reported symptomos worsening yesterday afternoon. Musculoskeletal History: Reports: Other (See Below) Other Musculoskeletal History: hx sprained R knee, has a knee brace Endocrine/Metabolic History: Reports: Diabetes, Type II, Other (See Below) Other Endocrine/Metabolic History: 1 year hx type 2 diabetes Dermatologic History: Reports: Other (See Below) Other Dermatologic History: Rosacea, skin allergies ? psoriasis, Red rash on her R leg - Infectious Disease History Infectious Disease History: Reports: Chicken Pox - Past Surgical History HEENT Surgical History: Reports: Tonsillectomy Female Surgical History: Reports: None Endocrine Surgical History: Reports: Thyroidectomy, Other (See Below) Other Endocrine Surgeries/Procedures: Partial thyroidectomy, has nodules on other area Musculoskeletal Surgical History: Reports: None Social & Family History - Family History Oncologic: Reports: Breast, Other (See Below) Other Oncologic Family History: mother of breast ca, father from testicular cancer - Tobacco Use Smoking Status *Q: Never Smoker - Caffeine Use Caffeine Use: Reports: Soda - Recreational Drug Use Recreational Drug Use: No ED ROS GENERAL - Review of Systems Review Of Systems: See Below Constitutional: Reports: Malaise, Weakness, Diaphoresis, Decreased Appetite. Denies: Fever HEENT: Reports: No Symptoms Respiratory: Reports: No Symptoms Cardiovascular: Reports: No Symptoms Endocrine: Reports: Other (hasn't taken meds or checked sugar ) GI/Abdominal: Reports: Nausea, Vomiting. Denies: Constipation, Diarrhea : Reports: Dysuria, Flank Pain, Frequency, Hematuria, Urgency Musculoskeletal: Reports: Back Pain Skin: Reports: Rash Neurological: Denies: Dizziness, Numbness, Syncope, Tingling, Weakness Hematologic/Lymphatic: Denies: Easy Bleeding, Easy Bruising ED EXAM, GENERAL - Physical Exam Exam: See Below Free Text/Narrative:: general: alert, non-toxic, but very tired appearing Head: atraumatic Throat: mouth slightly dry Neck: supple Heart: normal rate, no murmurs heard Respiratory: lungs clear, good air movement in all diaz Abdomen: soft, nontender, no rebound or guarding, normal bowel sounds Back: right sided costovertebral angle tenderness Legs: eczemas spots Vascular: no lower extremity edema, no peripheral pulses Course - Vital Signs Text/Narrative:: recent admission for pyelonephritis, discharged yesterday am feeling much better , but after getting home had worsening symptoms again. Given increasing pain wonder about obstruction or nephrolithiasis. Symptoms focal to urinary, but given diabetes could also have gallbladder/liver or GI. Plan IVF, zofran, get labs, will get CT scan. Last dose of Levaquin yesterday AM. Last Recorded V/S: Last Vital Signs Temp 37.3 C 05/03/19 11:20 Pulse 70 05/03/19 11:20 Resp 14 05/03/19 11:20 BP 128/69 05/03/19 11:20 Pulse Ox 99 05/03/19 11:20 - Orders/Labs/Meds Orders: Active Orders 24 hr Category Date Time Status Abdomen Pelvis w Cont [CT] Stat Exams 05/03/19 10:00 Taken Sodium Chloride 0.9% [Normal Saline] 1,000 ml Med 05/03/19 09:00 Active IV ASDIRECTED cefTRIAXone [Rocephin] Med 05/03/19 10:45 Active 1 gm IVPUSH Q24H Medication Orders Ceftriaxone Sodium (Rocephin) 1 gm IVPUSH Q24H [facility] Last Admin: 05/03/19 11:10 Dose: 1 gm Sodium Chloride (Normal Saline) 1,000 mls @ 125 mls/hr IV ASDIRECTED [facility] Last Admin: 05/03/19 09:34 Dose: 125 mls/hr Labs: Laboratory Tests 05/03/19 05/03/19 05/03/19 Range/Units 09:00 09:00 10:15 WBC 13.9 H (4.5-12.0) X10-3/uL RBC 4.90 (3.23-5.20) x10(6)uL Hgb 12.7 (11.5-15.5) g/dL Hct 38.2 (30.0-51.3) % MCV 77.8 L (80-96) fL MCH 25.8 L (27.7-33.6) pg MCHC 33.1 (32.2-35.4) g/dL RDW 16.1 H (11.5-15.5) % Plt Count 346 (125-369) X10(3)uL MPV 7.7 (7.4-10.4) fL Neut % (Auto) 82.7 H (46-82) % Lymph % (Auto) 12.5 L (13-37) % [place] % (Auto) 4.1 (4-12) % Eos % (Auto) 0 L (1.0-5.0) % Baso % (Auto) 0 (0-2) % Neut # (Auto) 11.5 H (1.6-8.3) # Lymph # (Auto) 1.7 (0.6-5.0) # [place] # (Auto) 0.6 (0.0-1.3) # Eos # (Auto) 0.1 (0.0-0.8) # Baso # (Auto) 0.0 (0.0-0.2) # Sodium 140 (135-145) mmol/L Potassium 3.7 (3.5-5.3) mmol/L Chloride 105 (100-110) mmol/L Carbon Dioxide 27 (21-32) mmol/L BUN 9 (7-18) mg/dL Creatinine 1.0 (0.55-1.02) mg/dL Est Cr Clr Drug Dosing 61.23 mL/min Estimated GFR (MDRD) 59 L (>60) BUN/Creatinine Ratio 9.0 (9-20) Glucose 138 H (80-116) mg/dL Calcium 8.8 (8.6-10.2) mg/dL Total Bilirubin 0.4 (0.1-1.3) mg/dL AST 17 D (5-25) IU/L ALT 23 D (12-36) U/L Alkaline Phosphatase 74 (56-112) IU/L Total Protein 7.4 (6.0-8.0) g/dL Albumin 3.3 L (3.5-5.2) g/dL Globulin 4.1 g/dL Albumin/Globulin Ratio 0.8 Urine Color Yellow (YELLOW) Urine Appearance Cloudy (CLEAR) Urine pH 6.0 (5.0-6.5) Ur Specific Harvey 1.020 (1.010-1.025) Urine Protein Negative (NEGATIVE) mg/dL Urine Glucose (UA) Normal (NORMAL) mg/dL Urine Ketones 15 H (NEGATIVE) mg/dL Urine Occult Blood Large H (NEGATIVE) Urine Nitrite Negative (NEGATIVE) Urine Bilirubin Negative (NEGATIVE) Urine Urobilinogen Normal (NEGATIVE) mg/dL Ur Leukocyte Esterase Large H (NEGATIVE) Urine WBC Packed H (0-5) Meds: Medications Generic Name Dose Route Start Last Admin Trade Name Freq PRN Reason Stop Dose Admin Ceftriaxone Sodium 1 gm 05/03/19 10:45 05/03/19 11:10 Rocephin IVPUSH 1 gm Q24H [facility] Administration Sodium Chloride 1,000 mls @ 125 mls/hr 05/03/19 09:00 05/03/19 09:34 Normal Saline IV 125 mls/hr ASDIRECTED [facility] Administration Discontinued Medications Generic Name Dose Route Start Last Admin Trade Name Zoraida PRN Reason Stop Dose Admin Iopamidol 100 ml 05/03/19 10:37 05/03/19 10:50 Isovue-370 (76%) IV 05/03/19 10:38 100 ml . DIRECTED ONE Administration Ketorolac Tromethamine 30 mg 05/03/19 10:00 05/03/19 10:07 Toradol IVPUSH 05/03/19 10:01 30 mg ONETIME ONE Administration Ondansetron HCl 4 mg 05/03/19 08:52 05/03/19 09:26 Zofran IVPUSH 05/03/19 08:53 4 mg ONETIME ONE Administration - Re-Assessments/Exams Free Text/Narrative Re-Assessment/Exam: 05/03/19 creatinine normal; patient asking for something for pain. her mother has severe allergic reaction to morphine so she states she does not want any IV. one dose toradol ordered. Has felt better after zofran also. CT scan ordered Free Text/Narrative Re-Assessment/Exam: 05/03/19 11:53 discussed with radiology: right obstructive uropathy with fat stranding and 9.2 X 14mm stone present possible atelectasis vs lingular pneumonia fatty liver with areas of sparing. Appendix difficulty to visualize but appears normal. Fix hiatal hernia. results discussed with patient, needs transfer for urology consult. She does not have a preference regarding facility as has not had good experiences at either in their outpatient clinics. Also notes she is extremely claustrophobic and would like to go by private car if possible. Given her clinical stability I think this would be ok. Call placed to [facility], Dr. Lorenzo accepting requested to hold patient here until a bed is available -- bed number [id number] will give additional dose of zofran just prior to transfer 1gm rocephin given in ER for antibiotic coverage today. History/weekend summary - admitted Friday night, treated with Levaquin IV, last dose Friday, no fever since then. Preliminary urine culture showed mixed floral contaminants. Repeat collected here today prior to antibiotic dosing. No blood cultures drawn today. Departure - Departure Time of Disposition: 12:05 Disposition: DC/Tfer to Acute Hospital 02 Condition: Fair Clinical Impression: Acute unilateral obstructive uropathy, Pyelonephritis, Diabetes - Discharge Information *PRESCRIPTION DRUG MONITORING PROGRAM REVIEWED*: Not Applicable *COPY OF PRESCRIPTION DRUG MONITORING REPORT IN PATIENT ISMAEL: Not Applicable Referrals: PCP,Not In Area [Primary Care Provider] - Forms: ED Department Discharge Additional Instructions: proceed to [facility]. You should go directly there, do not stop at home or to eat anything please. You should not eat or drink anything until the hospitalist has seen you at [place]. Bed number is [id number]. They will admit you directly to the hospital, you do not have to go through the ER. - My Orders Last 24 Hours: My Active Orders 05/03/19 09:00 Sodium Chloride 0.9% [Normal Saline] 1,000 ml IV ASDIRECTED 05/03/19 10:00 Abdomen Pelvis w Cont [CT] Stat 05/03/19 10:45 cefTRIAXone [Rocephin] 1 gm IVPUSH Q24H - Assessment/Plan Last 24 Hours: My Active Orders 05/03/19 09:00 Sodium Chloride 0.9% [Normal Saline] 1,000 ml IV ASDIRECTED 05/03/19 10:00 Abdomen Pelvis w Cont [CT] Stat 05/03/19 10:45 cefTRIAXone [Rocephin] 1 gm IVPUSH Q24H
[2019-05-03] MEDS ORDERED: Ketorolac 30 MG/ML SDV IVPUSH ONE (10:00)
[2019-05-03] MEDS ORDERED: Iopamidol 755 Mg/ML 100 ML Bottle IV ONE (10:37)
[2019-05-03] MEDS ORDERED: cefTRIAXone 1 GM Vial IVPUSH SCH (10:45)
--- NOTE | 2019-05-03 12:06 | CT ---
INDICATION: Question pyelonephritis versus obstruction, right lower quadrant and right upper quadrant pain. CT ABDOMEN AND PELVIS WITH CONTRAST: Spiral 3.75 mm axial sections were obtained through the abdomen and pelvis with 100 mL Isovue 370 at 1.5 mL/second , with sagittal and coronal reconstructions, 05/03/19 - no comparisons. Total exam DLP = 2,457.59 mGy-cm. There may be some minimal infiltrate versus fibrosis in the lingula. Minimal subsegmental atelectasis may also be present at the lung bases in the middle lobe and lingula. The heart was not enlarged. No pericardial effusion was seen. A small fixed hiatal hernia is suggested. No gallstones were demonstrated. No evidence of free air or bowel obstruction were seen. A small umbilical hernia, including only fat, is noted. No ventral hernia was seen. No inguinal hernia was seen. The liver appears enlarged and is low in density, compatible with a fatty liver. No focal liver lesion was identified. There is some fatty sparing, however, with relatively normal density seen in the liver. The adrenal glands and spleen, as well as the pancreas and the left kidney, appeared normal. On the right, there is pyelosinus backflow with pyelocaliectasis and ureterectasis - hydronephrosis - compatible with right obstructive uropathy due to a 9.2 x 14.0 mm calculus impacting in the proximal to mid right ureter. Fat stranding is noted distal to the ureter, compatible with pyelosinus backflow extending to that area. What appears to be the appendix was normal in caliber as visualized but is lost in the fat stranding. It is difficult to exclude thickening of the wall of the urinary bladder, due to its lack of distention. What appear to be follicular cysts are noted at the left ovary. Follicles are noted at the right ovary. No additional organomegaly, mass lesions, or free fluid collections were identified in the abdomen or pelvis. Sigmoid diverticulosis is noted without definite evidence of diverticulitis. Degenerative changes and disk disease are noted at L3-4 and L4-5, as well as L5- S1. IMPRESSION: 1. Obstructive uropathy appears severe due to a 14 mm x 9.2 mm calculus in the proximal to mid right ureter with fairly extensive pyelosinus backflow and fat stranding distal to the calculus in the right lower quadrant and surrounding the right kidney. 2. Possible curvilinear calculus lower pole right kidney. 3. Degenerative changes and disk disease lumbosacral spine. 4. Diverticulosis sigmoid without evidence of diverticulitis. 5. Fatty liver, which is enlarged, with areas of fatty sparing. 6. Small fixed hiatal hernia. 7. Area of minimal consolidation at the lingula, which could represent scarring , atelectasis, and/or minimal pneumonia with minimal areas of pneumonia - linear type suggested at the middle lobe and lingula additionally. 8. Small umbilical hernia, including only fat. Report was available and a message was left for Dr. Ivania Holland at approximately 1120 hours on 05/03/19 as to the availability of the report. Report faxed to [facility] on 05/03/19 at 1208 hours. [facility]
== END 2019-05-03 13:10 ==
LOC: FB.ED 08:15
DX: N12 Tubulo-interstitial nephritis, not specified as acute or chronic (principal); N13.8 Other obstructive and reflux uropathy; N20.1 Calculus of ureter; E11.9 Type 2 diabetes mellitus without complications; Z88.5 Allergy status to narcotic agent; Z79.899 Other long term (current) drug therapy; Z79.84 Long term (current) use of oral hypoglycemic drugs
CPT/HCPCS: 36415; 74177; 80053; 81001; 85025; 96361; 96374; 96375; 96376; 99285; J0696; J1885; J2405; J7030; Q9967